=== PATIENT | male | born 1980 | race Caucasian/White ===

== ENCOUNTER 2017-03-22 23:29 | Emergency (ER) | payer SELFPAY ==
[~2017-03-22 23:29] MED LIST: THIAMINE 100 MG in IV DEXTROSE 5% 50 ML IV
[2017-03-22 23:58] LABS: BASO # 0.1 x10^3/uL (0.0-0.2); BASO % 1 % (0-3); EOS # 0.1 x10^3/uL (0.0-0.7); EOS % 2 % (0-3); HEMATOCRIT 44.6 % (39.0-53.0); HEMOGLOBIN 15.2 g/dL (13.0-17.5); LYMPH # 1.7 x10^3/uL (1.0-4.8); LYMPH % 26 % (24-48); MEAN CORPUSCULAR HEMOGLOBIN 35 pg (25-35); MEAN CORPUSCULAR HGB CONC 34 g/dL (31-37); MEAN CORPUSCULAR VOLUME 102 fL (79-100); MONO # 1.2 x10^3/uL (0.0-1.1); MONO % 18 % (0-9); NEUT # 3.5 x10^3uL (1.8-7.7); NEUT % 53 % (31-73); PLATELET COUNT 173 x10^3/uL (140-400); RED BLOOD COUNT 4.39 x10^6/uL (4.30-5.70); WHITE BLOOD COUNT 6.6 x10^3/uL (4.0-11.0)
[2017-03-22 23:59] LABS: ADD MAN DIFF? YES
[2017-03-23] MEDS: IV NORMAL SALINE 1000ML BAG 1,000 ML IV ×2 (00:01)
[2017-03-23 00:10] LABS: ANION GAP 22 (6-14); BLOOD UREA NITROGEN 17 mg/dL (8-26); BUN/CREATININE RATIO 14 (6-20); CALCIUM 9.9 mg/dL (8.5-10.1); CARBON DIOXIDE 18 mmol/L (21-32); CHLORIDE 97 mmol/L (98-107); CREATININE 1.2 mg/dL (0.7-1.3); GFR 68.1; GLUCOSE 147 mg/dL (70-99); POTASSIUM 3.5 mmol/L (3.5-5.1); SODIUM 137 mmol/L (136-145)
[2017-03-23 00:15] LABS: ALBUMIN 4.4 g/dL (3.4-5.0); ALBUMIN/GLOBULIN RATIO 1.3 (1.0-1.7); ALK PHOS 83 U/L (46-116); ALT (SGPT) 163 U/L (16-63); AST (SGOT) 126 U/L (15-37); MAGNESIUM 2.4 mg/dL (1.8-2.4); TOTAL BILIRUBIN 1.3 mg/dL (0.2-1.0); TOTAL PROTEIN 7.9 g/dL (6.4-8.2)
[2017-03-23 00:17] LABS: TROPONINI < 0.017 ng/mL (0.000-0.055)
[2017-03-23] MEDS: THIAMINE 100 MG in IV DEXTROSE 5% 50 ML IV (00:30)
[2017-03-23 04:30] LABS: % BANDS 1 % (0-9); % BASOS 2 % (0-3); % EOS 3 % (0-5); % LYMPHS 33 % (24-48); % MONOS 10 % (0-10); % SEGS 51 % (35-66); PLT ESTIMATE ADEQUATE (ADEQUATE)
== END 2017-03-23 03:09 | disposition home or self-care (01) ==
LOC: ER 23:29
DX: F10.239 Alcohol dependence with withdrawal, unspecified (principal); T51.0X1A Toxic effect of ethanol, accidental (unintentional), initial encounter; R56.9 Unspecified convulsions; I10 Essential (primary) hypertension
CPT/HCPCS: 36415; 70450; 80053; 83735; 84484; 85007; 85025; 93005; 96365; 96366; 96375; 96376; 99285-25; J2060; J7030